=== PATIENT | male | born 1930 | race African-American/Black ===

== ENCOUNTER 2018-10-05 15:01 | Inpatient (IN) | payer MEDICARE ==
[~2018-10-05] VITALS: Ht 172.7 cm; Wt 85.7 kg
[2018-10-05] MEDS ORDERED: SODIUM CHLORIDE 0.9% 1,000 ML IV ONE (15:16)
[2018-10-05] MEDS ORDERED: AMLO10TA80 MT (15:50)
[2018-10-05] MEDS ORDERED: TAMS0.4C31 MT (15:50)
[2018-10-05] MEDS ORDERED: GLIP5TAB12 MT (15:50)
[2018-10-05] MEDS ORDERED: LEVO175T7 MT (15:50)
[2018-10-05] MEDS ORDERED: SIMV80TA70 MT (15:50)
[2018-10-05] MEDS ORDERED: ASPI-1158 MT (15:50)
[2018-10-05] MEDS ORDERED: METO-539 PO (15:50)
[2018-10-05] MEDS ORDERED: METF-816 MT (15:50)
[2018-10-05 16:08] LABS: HEMATOCRIT. 30.6 % (42.0-52.0); HEMOGLOBIN. 10.3 g/dL (14.0-18.0); MEAN CORPUSCULAR HEMOGLOBIN 31.5 pg (28.0-32.0); MEAN CORPUSCULAR VOLUME 93.8 fL (80.0-94.0); MEAN PLATELET VOLUME 8.7 fl (7.4-10.4); PLATELET 244 x1000/uL (130-400); RED BLOOD CELL COUNT 3.26 mill/uL (4.7-6.1); RED CELL DISTRIBUTION WIDTH 16.4 % (11.6-14.6)
[2018-10-05 16:09] LABS: PROTHROMBIN TIME 10.3 sec (9.1-11.1)
[2018-10-05 16:19] LABS: CHLORIDE 104 mEq/L (98-107)
[2018-10-05 16:29] LABS: PLATELET ESTIMATE NORMAL
[2018-10-05] MEDS ORDERED: MORPHINE SULFATE 4 MG/ML CPJ (NOT FOR IM USE) IV ONE (18:00)
[2018-10-05 18:17] LABS: CLARITY URINE CLEAR (CLEAR); COLOR URINE DARK YELLOW (YELLOW); KETONES URINE TRACE (NEGATIVE); LEUKOCYTE ESTERASE URINE NEGATIVE (NEGATIVE); NITRITE URINE NEGATIVE (NEGATIVE); OCCULT BLOOD URINE TRACE (NEGATIVE); PROTEIN URINE TRACE (NEGATIVE); SPECIFIC GRAVITY URINE 1.025 (1.005-1.030)
[2018-10-05 21:40] VITALS: BP 112/56
[2018-10-05 22:00] VITALS: BP 112/56
[2018-10-05] MEDS ORDERED: MAGNESIUM HYDROXIDE 400MG/5ML 30ML UDC PO PRN (22:15)
[2018-10-05] MEDS ORDERED: IBUPROFEN 600MG TABLET PO PRN (22:15)
[2018-10-05] MEDS ORDERED: ACETAMINOPHEN 325MG TABLET PO PRN (22:15)
[2018-10-05] MEDS ORDERED: MAGNESIUM/ALUMINUM HYDROXIDE/SIMETHICONE 30ML UDC PO PRN (22:15)
[2018-10-05] MEDS ORDERED: DEXTROSE 50% WATER 50ML SYRINGE IV PRN (22:15)
[2018-10-05] MEDS ORDERED: GUAIFENESIN 200MG/10ML SUGAR FREE UDC PO PRN (22:15)
[2018-10-05] MEDS ORDERED: CLONIDINE 0.1MG TABLET PO PRN (22:15)
[2018-10-05] MEDS ORDERED: IPRATROPIUM/ALBUTEROL 0.5-3(2.5)MG/3ML NEB INH PRN (22:15)
[2018-10-05] MEDS ORDERED: TEMAZEPAM 15MG CAPSULE PO PRN (22:15)
[2018-10-05] MEDS ORDERED: ONDANSETRON HCL 4MG/2ML INJ IV PRN (22:15)
[2018-10-05] MEDS ORDERED: INFLUENZA VIRUS VACCINE(AFLURIA) 0.5ML SYR IM ONE (22:30)
[2018-10-06] MEDS: FAMOTIDINE 20MG TABLET PO SCH ×2 (01:51→20:25)
[2018-10-06] MEDS: SODIUM CHLORIDE 0.9% 1,000 ML IV SCH ×2 (01:52→12:09)
[2018-10-06] MEDS: TRAMADOL 50MG TABLET PO PRN ×2 (01:52→20:25)
[2018-10-06 04:00] VITALS: BP 123/67
[2018-10-06] MEDS: LEVOTHYROXINE SODIUM 175MCG TABLET PO SCH (06:25)
[2018-10-06] MEDS: BLOOD SUGAR DIAGNOSTIC STRIP TEST SCH ×4 (06:26→20:29)
[2018-10-06] MEDS: GLIPIZIDE 5MG TABLET PO SCH (06:26)
[2018-10-06] MEDS: INSULIN LISPRO 100 UNITS/ML SUBCUT SCH ×4 (06:38→20:29)
[2018-10-06 07:48] VITALS: BP 133/50
[2018-10-06 08:00] VITALS: BP 133/50
[2018-10-06] MEDS: TAMSULOSIN HCL 0.4MG SR CAPSULE PO SCH (08:21)
[2018-10-06 12:00] VITALS: BP 148/61
[2018-10-06] MEDS ORDERED: GUAIFENESIN 200MG/10ML SUGAR FREE UDC PO PRN (17:45)
[2018-10-06 20:00] VITALS: BP 129/57
[2018-10-06] MEDS: ATORVASTATIN CALCIUM 40MG TABLET PO SCH (23:00)
[2018-10-07] VITALS (8 sets, daily range): BP systolic 104–137; BP diastolic 55–66
[2018-10-07] MEDS: INSULIN LISPRO 100 UNITS/ML SUBCUT SCH ×4 (06:29→20:32)
[2018-10-07] MEDS: BLOOD SUGAR DIAGNOSTIC STRIP TEST SCH ×4 (06:29→20:32)
[2018-10-07] MEDS: GLIPIZIDE 5MG TABLET PO SCH (06:30)
[2018-10-07] MEDS: LEVOTHYROXINE SODIUM 175MCG TABLET PO SCH (06:30)
[2018-10-07] MEDS: TAMSULOSIN HCL 0.4MG SR CAPSULE PO SCH (09:31)
[2018-10-07] MEDS: FAMOTIDINE 20MG TABLET PO SCH (20:32)
[2018-10-07] MEDS: ATORVASTATIN CALCIUM 40MG TABLET PO SCH (20:32)
[2018-10-08] VITALS (7 sets, daily range): BP systolic 113–142; BP diastolic 49–63
[2018-10-08] MEDS: LEVOTHYROXINE SODIUM 175MCG TABLET PO SCH (06:21)
[2018-10-08] MEDS: GLIPIZIDE 5MG TABLET PO SCH (06:21)
[2018-10-08] MEDS: INSULIN LISPRO 100 UNITS/ML SUBCUT SCH ×4 (06:22→21:00)
[2018-10-08] MEDS: BLOOD SUGAR DIAGNOSTIC STRIP TEST SCH ×4 (06:22→21:21)
[2018-10-08] MEDS: TAMSULOSIN HCL 0.4MG SR CAPSULE PO SCH (09:00)
[2018-10-08 12:28] LABS: BASOPHILS % 0.4 % (0.0-2.0); HEMATOCRIT. 27.1 % (42.0-52.0); LYMPHOCYTES % 15.8 % (20.0-50.0); MEAN CORPUSCULAR HEMOGLOBIN 31.6 pg (28.0-32.0); MEAN CORPUSCULAR VOLUME 94.6 fL (80.0-94.0); MEAN PLATELET VOLUME 7.9 fl (7.4-10.4); MONOCYTES % 8.2 % (2.0-8.0); NEUTROPHILS % 73.6 % (40.0-76.0); PLATELET 223 x1000/uL (130-400); RED BLOOD CELL COUNT 2.86 mill/uL (4.7-6.1); RED CELL DISTRIBUTION WIDTH 16.1 % (11.6-14.6)
[2018-10-08 12:31] LABS: CHLORIDE 106 mEq/L (98-107)
[2018-10-08] MEDS ORDERED: ROPIVACAINE HCL 10MG/ML 20 ML VIAL EPI ONE (16:53)
[2018-10-08] MEDS ORDERED: GLYCOPYRROLATE 0.2 MG/ML 2ML VIAL ONE (16:59)
[2018-10-08] MEDS ORDERED: FENTANYL CITRATE/PF 50MCG/ML 2ML VIAL ONE (16:59)
[2018-10-08] MEDS ORDERED: MIDAZOLAM HCL 2 MG/2 ML VIAL ONE (16:59)
[2018-10-08] MEDS ORDERED: PROPOFOL 200MG/20ML VIAL IV ONE (16:59)
[2018-10-08] MEDS ORDERED: METOCLOPRAMIDE HCL 10MG/2ML VIAL ONE (17:00)
[2018-10-08] MEDS ORDERED: ONDANSETRON HCL 4MG/2ML INJ ONE (17:00)
[2018-10-08] MEDS ORDERED: SUCCINYLCHOLINE CHLORIDE 200MG/10ML IV ONE (17:00)
[2018-10-08] MEDS ORDERED: LIDOCAINE HCL/PF 1% 10 MG/ML 5ML VIAL ONE (17:00)
[2018-10-08] MEDS ORDERED: SKIN ADHESIVE 0.7 GM EA TOP ONE (17:02)
[2018-10-08] MEDS ORDERED: BUPIVACAINE HCL/PF 0.5% (5MG/ML) 10ML ONE (17:02)
[2018-10-08] MEDS ORDERED: BACITRACIN 50,000 UNITS/VIAL ONE (17:03)
[2018-10-08] MEDS ORDERED: BACITRACIN 15GM TUBE TOP ONE (17:03)
[2018-10-08] MEDS ORDERED: NORMAL SALINE 0.9% 10 ML SYR ONE (17:03)
[2018-10-08] MEDS ORDERED: ROCURONIUM BROMIDE 10MG/ML VIAL 5ML IV ONE (17:34)
[2018-10-08] MEDS ORDERED: BUPIVACAINE HCL/EPINEPHRINE 0.5%/0.0005 30ML ONE (18:03)
[2018-10-08] MEDS ORDERED: SODIUM CHLORIDE 0.9% 10ML VIAL ONE ×2 (18:35→19:14)
[2018-10-08] MEDS ORDERED: EPHEDRINE SULFATE 50MG/ML VIAL ONE ×2 (18:35→19:14)
[2018-10-08] MEDS ORDERED: MORPHINE SULFATE 4 MG/ML CPJ (NOT FOR IM USE) IV PRN ×2 (20:15)
[2018-10-08] MEDS: ATORVASTATIN CALCIUM 40MG TABLET PO SCH (21:00)
[2018-10-08] MEDS: FAMOTIDINE 20MG TABLET PO SCH (21:00)
[2018-10-08] MEDS: CEFAZOLIN 2,000 MG in DEXT 5% WATER 100 ML IV SCH (22:38)
[2018-10-09] VITALS: BP 107/55
[2018-10-09 03:47] VITALS: BP 131/65
[2018-10-09] MEDS: CEFAZOLIN 2,000 MG in DEXT 5% WATER 100 ML IV SCH (05:24)
[2018-10-09] MEDS: LEVOTHYROXINE SODIUM 175MCG TABLET PO SCH (06:34)
[2018-10-09] MEDS: GLIPIZIDE 5MG TABLET PO SCH (06:34)
[2018-10-09] MEDS: INSULIN LISPRO 100 UNITS/ML SUBCUT SCH ×4 (06:35→20:58)
[2018-10-09] MEDS: BLOOD SUGAR DIAGNOSTIC STRIP TEST SCH ×4 (06:35→21:00)
[2018-10-09 08:01] LABS: CHLORIDE 104 mEq/L (98-107)
[2018-10-09 08:03] LABS: HEMATOCRIT. 25.2 % (42.0-52.0); HEMOGLOBIN. 8.3 g/dL (14.0-18.0); MEAN CORPUSCULAR HEMOGLOBIN 31.2 pg (28.0-32.0); MEAN CORPUSCULAR VOLUME 94.7 fL (80.0-94.0); MEAN PLATELET VOLUME 7.8 fl (7.4-10.4); PLATELET 201 x1000/uL (130-400); RED BLOOD CELL COUNT 2.66 mill/uL (4.7-6.1); RED CELL DISTRIBUTION WIDTH 16.2 % (11.6-14.6)
[2018-10-09] MEDS: TAMSULOSIN HCL 0.4MG SR CAPSULE PO SCH (09:18)
[2018-10-09 12:00] VITALS: BP 116/60
[2018-10-09] MEDS: TRAMADOL 50MG TABLET PO PRN (14:28)
[2018-10-09 16:00] VITALS: BP 96/54
[2018-10-09 17:01] LABS: PLATELET ESTIMATE NORMAL
[2018-10-09 20:00] VITALS: BP 135/59
[2018-10-09] MEDS: FAMOTIDINE 20MG TABLET PO SCH (20:58)
[2018-10-09] MEDS: ATORVASTATIN CALCIUM 40MG TABLET PO SCH (20:58)
[2018-10-10] VITALS: BP 130/66
[2018-10-10 04:00] VITALS: BP 145/77
[2018-10-10] MEDS: BLOOD SUGAR DIAGNOSTIC STRIP TEST SCH ×3 (05:45→18:09)
[2018-10-10] MEDS: LEVOTHYROXINE SODIUM 175MCG TABLET PO SCH (05:48)
[2018-10-10] MEDS: INSULIN LISPRO 100 UNITS/ML SUBCUT SCH ×3 (05:50→18:06)
[2018-10-10] MEDS: GLIPIZIDE 5MG TABLET PO SCH (05:50)
[2018-10-10 06:20] LABS: HEMATOCRIT 24.2 % (42.0-52.0); HEMOGLOBIN 8.2 g/dL (14.0-18.0); MEAN CORPUSCULAR HEMOGLOBIN 31.4 pg (28.0-32.0); MEAN CORPUSCULAR VOLUME 92.9 fL (80.0-94.0); PLATELET 232 x1000/uL (130-400); RED BLOOD CELL COUNT 2.61 mill/uL (4.7-6.1); RED CELL DISTRIBUTION WIDTH 15.9 % (11.6-14.6)
[2018-10-10 08:00] VITALS: BP 125/62
[2018-10-10] MEDS: TAMSULOSIN HCL 0.4MG SR CAPSULE PO SCH (08:51)
[2018-10-10 09:41] LABS: T4 FREE 1.09 ng/dL (0.76-1.46)
[2018-10-10 12:07] VITALS: BP 139/64
[2018-10-10 16:10] VITALS: BP 135/65
[2018-10-10 17:07] LABS: CLARITY URINE CLEAR (CLEAR); COLOR URINE YELLOW (YELLOW); KETONES URINE NEGATIVE (NEGATIVE); LEUKOCYTE ESTERASE URINE 1+ (NEGATIVE); NITRITE URINE NEGATIVE (NEGATIVE); OCCULT BLOOD URINE 2+ (NEGATIVE); PROTEIN URINE TRACE (NEGATIVE); SPECIFIC GRAVITY URINE 1.017 (1.005-1.030)
[2018-10-11] MEDS ORDERED: LEVOTHYROXINE SODIUM 175MCG TABLET PO SCH (06:00)
== END 2018-10-10 18:50 | DRG 493 ==
LOC: ER 15:01 → 8WST 18:47 → EDBEDREQ 18:50 → EDBEDREQTM 20:13 → EDBEDREQ 20:13 → ENRESERV 20:15 → CANRESERV 20:15
PROVIDERS: ADMIT Internal Medicine; ATTEND Internal Medicine
PROC: 0PSD06Z Reposition Left Humeral Head with Intramedullary Internal Fixation Device, Open Approach (ICD-10-PCS; principal; 2018-10-08 17:00)
DX: S42.252A Displaced fracture of greater tuberosity of left humerus, initial encounter for closed fracture (principal); I42.9 Cardiomyopathy, unspecified; S42.212A Unspecified displaced fracture of surgical neck of left humerus, initial encounter for closed fracture; E11.22 Type 2 diabetes mellitus with diabetic chronic kidney disease; I12.9 Hypertensive chronic kidney disease with stage 1 through stage 4 chronic kidney disease, or unspecified chronic kidney disease; N18.2 Chronic kidney disease, stage 2 (mild); G90.8 Other disorders of autonomic nervous system; E03.9 Hypothyroidism, unspecified; E78.00 Pure hypercholesterolemia, unspecified; I35.0 Nonrheumatic aortic (valve) stenosis; I48.0 Paroxysmal atrial fibrillation; W18.30XA Fall on same level, unspecified, initial encounter; Z85.46 Personal history of malignant neoplasm of prostate; Z86.73 Personal history of transient ischemic attack (TIA), and cerebral infarction without residual deficits; Z87.891 Personal history of nicotine dependence; Z95.0 Presence of cardiac pacemaker; Z95.810 Presence of automatic (implantable) cardiac defibrillator; Y93.89 Activity, other specified; Y92.098 Other place in other non-institutional residence as the place of occurrence of the external cause; Y99.8 Other external cause status
CPT/HCPCS: 36415; 71045; 73030; 73060; 80048; 82962; 83605; 84439; 84443; 84480; 84481; 84484; 85007; 85027; 86850; 86900; 90686; 93005; 93306; 93970; 96361; 96374; 97110; 97163; 97166; 97530; 99285; A4216; A4565; C1713; C1769; J0171; J0330; J0690; J1815; J2250; J2270; J2405; J2704; J2765; J2795; J3010; J3490; J7030; J7050; J7060; J7620

== ENCOUNTER 2018-10-10 19:00 | Inpatient (IN) | payer MEDICARE ==
[~2018-10-10] VITALS: Ht 172.7 cm; Wt 85.3 kg
[~2018-10-10 19:00] MED LIST: AMLO10TA80 MT; ASPI-1158 MT; GLIP5TAB12 MT; LEVO175T7 MT; METF-816 MT; METO-539 PO; SIMV80TA70 MT; TAMS0.4C31 MT
[2018-10-10 20:00] VITALS: BP_SYST 149; BP_SYST 159; BP_DIAS 64; BP_DIAS 69
[2018-10-10] MEDS ORDERED: MAGNESIUM/ALUMINUM HYDROXIDE/SIMETHICONE 30ML UDC PO PRN (20:45)
[2018-10-10] MEDS ORDERED: ACETAMINOPHEN 325MG TABLET PO PRN (20:45)
[2018-10-10] MEDS ORDERED: TEMAZEPAM 15MG CAPSULE PO PRN (20:45)
[2018-10-10] MEDS ORDERED: ONDANSETRON HCL 4MG TABLET PO PRN (20:45)
[2018-10-10] MEDS ORDERED: TRAMADOL 50MG TABLET PO PRN (20:45)
[2018-10-10] MEDS ORDERED: DEXTROSE 50% WATER 50ML SYRINGE IV PRN (20:45)
[2018-10-10] MEDS ORDERED: CLONIDINE 0.1MG TABLET PO PRN (20:45)
[2018-10-10] MEDS ORDERED: IPRATROPIUM/ALBUTEROL 0.5-3(2.5)MG/3ML NEB HHN PRN (20:45)
[2018-10-10] MEDS: INSULIN LISPRO 100 UNITS/ML SUBCUT SCH (21:00)
[2018-10-10] MEDS ORDERED: MAGNESIUM HYDROXIDE 400MG/5ML 30ML UDC PO PRN (21:15)
[2018-10-10] MEDS: FAMOTIDINE 20MG TABLET PO SCH (21:49)
[2018-10-10] MEDS: ATORVASTATIN CALCIUM 40MG TABLET PO SCH (21:49)
[2018-10-10] MEDS: BLOOD SUGAR DIAGNOSTIC STRIP TEST SCH (21:54)
[2018-10-11] MEDS: HYDROCODONE/ACETAMINOPHEN 5/325MG TABLET PO PRN (04:36)
[2018-10-11] MEDS: INSULIN LISPRO 100 UNITS/ML SUBCUT SCH ×4 (06:37→21:36)
[2018-10-11] MEDS: LEVOTHYROXINE SODIUM 88MCG TABLET PO SCH (06:37)
[2018-10-11] MEDS: BLOOD SUGAR DIAGNOSTIC STRIP TEST SCH ×4 (06:37→20:59)
[2018-10-11] MEDS: GLIPIZIDE 5MG TABLET PO SCH (06:38)
[2018-10-11] MEDS: LEVOTHYROXINE SODIUM 100MCG TABLET PO SCH (06:38)
[2018-10-11 08:46] VITALS: BP 144/68
[2018-10-11] MEDS: TAMSULOSIN HCL 0.4MG SR CAPSULE PO SCH (08:51)
[2018-10-11] MEDS: CLONIDINE 0.1MG TABLET PO SCH (08:52)
[2018-10-11 12:00] VITALS: BP 120/57
[2018-10-11 16:00] VITALS: BP 142/64
[2018-10-11] MEDS: DOCUSATE SODIUM 100MG CAPSULE PO SCH (17:00)
[2018-10-11 20:00] VITALS: BP 151/63
[2018-10-11] MEDS: ATORVASTATIN CALCIUM 40MG TABLET PO SCH (21:35)
[2018-10-11] MEDS: FAMOTIDINE 20MG TABLET PO SCH (21:35)
[2018-10-11 23:56] VITALS: BP 149/67
[2018-10-12] VITALS (7 sets, daily range): BP systolic 102–155; BP diastolic 47–68
[2018-10-12] MEDS: BLOOD SUGAR DIAGNOSTIC STRIP TEST SCH ×4 (06:35→20:39)
[2018-10-12] MEDS: INSULIN LISPRO 100 UNITS/ML SUBCUT SCH ×4 (06:35→20:39)
[2018-10-12] MEDS: LEVOTHYROXINE SODIUM 88MCG TABLET PO SCH (06:35)
[2018-10-12] MEDS: GLIPIZIDE 5MG TABLET PO SCH (06:35)
[2018-10-12] MEDS: LEVOTHYROXINE SODIUM 100MCG TABLET PO SCH (06:35)
[2018-10-12 08:08] LABS: BASOPHILS % 0.5 % (0.0-2.0); EOSINOPHILS % 2.7 % (0.0-5.0); HEMATOCRIT. 21.8 % (42.0-52.0); HEMOGLOBIN. 7.4 g/dL (14.0-18.0); LYMPHOCYTES % 10.2 % (20.0-50.0); MEAN CORPUSCULAR HEMOGLOBIN 31.6 pg (28.0-32.0); MEAN PLATELET VOLUME 6.9 fl (7.4-10.4); MONOCYTES % 10.2 % (2.0-8.0); NEUTROPHILS % 76.4 % (40.0-76.0); PLATELET 261 x1000/uL (130-400); RED BLOOD CELL COUNT 2.35 mill/uL (4.7-6.1); RED CELL DISTRIBUTION WIDTH 15.9 % (11.6-14.6)
[2018-10-12] MEDS: CLONIDINE 0.1MG TABLET PO SCH (09:00)
[2018-10-12] MEDS: TAMSULOSIN HCL 0.4MG SR CAPSULE PO SCH (09:00)
[2018-10-12] MEDS: DOCUSATE SODIUM 100MG CAPSULE PO SCH ×2 (09:08→16:59)
[2018-10-12 09:39] LABS: CHLORIDE 103 mEq/L (98-107)
[2018-10-12] MEDS ORDERED: IPRATROPIUM/ALBUTEROL 0.5-3(2.5)MG/3ML NEB HHN PRN (16:00)
[2018-10-12] MEDS: ATORVASTATIN CALCIUM 40MG TABLET PO SCH (20:39)
[2018-10-12] MEDS: FAMOTIDINE 20MG TABLET PO SCH (20:39)
[2018-10-13 00:39] VITALS: BP 136/57
[2018-10-13 00:40] VITALS: BP 136/57
[2018-10-13] MEDS ORDERED: TEMAZEPAM 15MG CAPSULE PO PRN (01:45)
[2018-10-13 05:59] LABS: BASOPHILS % 0.5 % (0.0-2.0); EOSINOPHILS % 2.6 % (0.0-5.0); HEMATOCRIT. 27.1 % (42.0-52.0); HEMOGLOBIN. 9.5 g/dL (14.0-18.0); LYMPHOCYTES % 15.1 % (20.0-50.0); MEAN CORPUSCULAR HEMOGLOBIN 32.2 pg (28.0-32.0); MEAN CORPUSCULAR VOLUME 91.5 fL (80.0-94.0); MEAN PLATELET VOLUME 6.9 fl (7.4-10.4); MONOCYTES % 11.3 % (2.0-8.0); NEUTROPHILS % 70.5 % (40.0-76.0); PLATELET 295 x1000/uL (130-400); RED BLOOD CELL COUNT 2.96 mill/uL (4.7-6.1); RED CELL DISTRIBUTION WIDTH 15.7 % (11.6-14.6)
[2018-10-13] MEDS: BLOOD SUGAR DIAGNOSTIC STRIP TEST SCH ×4 (06:26→20:40)
[2018-10-13] MEDS: GLIPIZIDE 5MG TABLET PO SCH (06:28)
[2018-10-13] MEDS: LEVOTHYROXINE SODIUM 100MCG TABLET PO SCH (06:28)
[2018-10-13] MEDS: LEVOTHYROXINE SODIUM 88MCG TABLET PO SCH (06:28)
[2018-10-13] MEDS: INSULIN LISPRO 100 UNITS/ML SUBCUT SCH ×4 (06:28→20:40)
[2018-10-13 08:00] VITALS: BP 131/61
[2018-10-13] MEDS: TAMSULOSIN HCL 0.4MG SR CAPSULE PO SCH (08:24)
[2018-10-13] MEDS: DOCUSATE SODIUM 100MG CAPSULE PO SCH ×2 (08:24→17:16)
[2018-10-13] MEDS: GUAIFENESIN 200MG/10ML SUGAR FREE UDC PO PRN ×2 (08:25→17:18)
[2018-10-13] MEDS: CLONIDINE 0.1MG TABLET PO SCH (10:11)
[2018-10-13] MEDS: HYDROCODONE/ACETAMINOPHEN 5/325MG TABLET PO PRN (17:18)
[2018-10-13 20:00] VITALS: BP 130/58
[2018-10-13] MEDS: FAMOTIDINE 20MG TABLET PO SCH (20:40)
[2018-10-13] MEDS: ATORVASTATIN CALCIUM 40MG TABLET PO SCH (20:40)
[2018-10-14] MEDS: GUAIFENESIN 200MG/10ML SUGAR FREE UDC PO PRN ×3 (03:29→12:37)
[2018-10-14] MEDS: BLOOD SUGAR DIAGNOSTIC STRIP TEST SCH ×4 (06:08→21:59)
[2018-10-14] MEDS: INSULIN LISPRO 100 UNITS/ML SUBCUT SCH ×4 (06:36→21:00)
[2018-10-14] MEDS: GLIPIZIDE 5MG TABLET PO SCH (06:36)
[2018-10-14] MEDS: LEVOTHYROXINE SODIUM 88MCG TABLET PO SCH (06:36)
[2018-10-14] MEDS: LEVOTHYROXINE SODIUM 100MCG TABLET PO SCH (06:36)
[2018-10-14 08:03] VITALS: BP 136/51
[2018-10-14] MEDS: CLONIDINE 0.1MG TABLET PO SCH (08:23)
[2018-10-14] MEDS: TAMSULOSIN HCL 0.4MG SR CAPSULE PO SCH (08:23)
[2018-10-14] MEDS: DOCUSATE SODIUM 100MG CAPSULE PO SCH ×2 (08:23→16:36)
[2018-10-14 20:00] VITALS: BP 109/60
[2018-10-14] MEDS: FAMOTIDINE 20MG TABLET PO SCH (21:59)
[2018-10-14] MEDS: ATORVASTATIN CALCIUM 40MG TABLET PO SCH (21:59)
[2018-10-15] MEDS: BLOOD SUGAR DIAGNOSTIC STRIP TEST SCH ×4 (06:04→21:00)
[2018-10-15] MEDS: GLIPIZIDE 5MG TABLET PO SCH (06:05)
[2018-10-15] MEDS: LEVOTHYROXINE SODIUM 88MCG TABLET PO SCH (06:05)
[2018-10-15] MEDS: LEVOTHYROXINE SODIUM 100MCG TABLET PO SCH (06:05)
[2018-10-15] MEDS: INSULIN LISPRO 100 UNITS/ML SUBCUT SCH ×4 (06:48→21:00)
[2018-10-15 08:03] VITALS: BP 178/69
[2018-10-15] MEDS: CLONIDINE 0.1MG TABLET PO SCH (10:21)
[2018-10-15] MEDS: TAMSULOSIN HCL 0.4MG SR CAPSULE PO SCH (10:21)
[2018-10-15] MEDS: DOCUSATE SODIUM 100MG CAPSULE PO SCH ×2 (10:21→17:39)
[2018-10-15 18:01] LABS: BASOPHILS % 0.9 % (0.0-2.0); EOSINOPHILS % 1.6 % (0.0-5.0); HEMOGLOBIN. 9.1 g/dL (14.0-18.0); MEAN CORPUSCULAR HEMOGLOBIN 31.2 pg (28.0-32.0); MEAN CORPUSCULAR VOLUME 92.5 fL (80.0-94.0); MEAN PLATELET VOLUME 6.4 fl (7.4-10.4); MONOCYTES % 8.3 % (2.0-8.0); NEUTROPHILS % 74.2 % (40.0-76.0); PLATELET 353 x1000/uL (130-400); RED BLOOD CELL COUNT 2.92 mill/uL (4.7-6.1); RED CELL DISTRIBUTION WIDTH 15.3 % (11.6-14.6)
[2018-10-15 20:00] VITALS: BP 135/47
[2018-10-15] MEDS: FAMOTIDINE 20MG TABLET PO SCH (22:20)
[2018-10-15] MEDS: ATORVASTATIN CALCIUM 40MG TABLET PO SCH (22:20)
[2018-10-15] MEDS ORDERED: TRAMADOL 50MG TABLET PO PRN (22:30)
[2018-10-15] MEDS ORDERED: HYDROCODONE/ACETAMINOPHEN 5/325MG TABLET PO PRN (22:30)
[2018-10-16] MEDS: GLIPIZIDE 5MG TABLET PO SCH (06:01)
[2018-10-16] MEDS: BLOOD SUGAR DIAGNOSTIC STRIP TEST SCH ×4 (06:01→21:00)
[2018-10-16] MEDS: LEVOTHYROXINE SODIUM 100MCG TABLET PO SCH (06:02)
[2018-10-16] MEDS: LEVOTHYROXINE SODIUM 88MCG TABLET PO SCH (06:02)
[2018-10-16] MEDS: INSULIN LISPRO 100 UNITS/ML SUBCUT SCH ×4 (06:56→21:00)
[2018-10-16 08:15] VITALS: BP 127/60
[2018-10-16] MEDS: CLONIDINE 0.1MG TABLET PO SCH (09:00)
[2018-10-16 09:25] VITALS: BP 108/52
[2018-10-16] MEDS: TAMSULOSIN HCL 0.4MG SR CAPSULE PO SCH (09:37)
[2018-10-16] MEDS: DOCUSATE SODIUM 100MG CAPSULE PO SCH ×2 (09:37→17:50)
[2018-10-16 11:44] LABS: BASOPHILS % 0.6 % (0.0-2.0); EOSINOPHILS % 2.5 % (0.0-5.0); HEMATOCRIT. 26.2 % (42.0-52.0); LYMPHOCYTES % 13.8 % (20.0-50.0); MEAN CORPUSCULAR HEMOGLOBIN 31.6 pg (28.0-32.0); MEAN CORPUSCULAR VOLUME 92.5 fL (80.0-94.0); MEAN PLATELET VOLUME 6.5 fl (7.4-10.4); MONOCYTES % 8.4 % (2.0-8.0); NEUTROPHILS % 74.7 % (40.0-76.0); PLATELET 340 x1000/uL (130-400); RED BLOOD CELL COUNT 2.83 mill/uL (4.7-6.1); RED CELL DISTRIBUTION WIDTH 15.8 % (11.6-14.6)
[2018-10-16] MEDS ORDERED: HYDROCODONE/ACETAMINOPHEN 5/325MG TABLET PO PRN (19:00)
[2018-10-16] MEDS ORDERED: TRAMADOL 50MG TABLET PO PRN (19:00)
[2018-10-16 20:00] VITALS: BP 129/50
[2018-10-17] MEDS: ATORVASTATIN CALCIUM 40MG TABLET PO SCH ×2 (05:28→22:24)
[2018-10-17] MEDS: FAMOTIDINE 20MG TABLET PO SCH ×2 (05:28→22:24)
[2018-10-17] MEDS: BLOOD SUGAR DIAGNOSTIC STRIP TEST SCH ×4 (06:26→21:00)
[2018-10-17] MEDS: LEVOTHYROXINE SODIUM 100MCG TABLET PO SCH (06:27)
[2018-10-17] MEDS: INSULIN LISPRO 100 UNITS/ML SUBCUT SCH ×4 (06:27→21:00)
[2018-10-17] MEDS: LEVOTHYROXINE SODIUM 88MCG TABLET PO SCH (06:27)
[2018-10-17] MEDS: GLIPIZIDE 5MG TABLET PO SCH (06:27)
[2018-10-17 08:06] VITALS: BP 139/61
[2018-10-17] MEDS: TAMSULOSIN HCL 0.4MG SR CAPSULE PO SCH (08:32)
[2018-10-17] MEDS: DOCUSATE SODIUM 100MG CAPSULE PO SCH ×2 (08:32→16:07)
[2018-10-17] MEDS: CLONIDINE 0.1MG TABLET PO SCH (08:33)
[2018-10-17 20:00] VITALS: BP 119/56
[2018-10-17 23:47] LABS: CLARITY URINE CLEAR (CLEAR); COLOR URINE YELLOW (YELLOW); KETONES URINE NEGATIVE (NEGATIVE); LEUKOCYTE ESTERASE URINE TRACE (NEGATIVE); NITRITE URINE NEGATIVE (NEGATIVE); OCCULT BLOOD URINE 3+ (NEGATIVE); PROTEIN URINE NEGATIVE (NEGATIVE); SPECIFIC GRAVITY URINE 1.021 (1.005-1.030)
[2018-10-18] MEDS: LEVOTHYROXINE SODIUM 100MCG TABLET PO SCH (06:45)
[2018-10-18] MEDS: INSULIN LISPRO 100 UNITS/ML SUBCUT SCH ×4 (06:46→21:44)
[2018-10-18] MEDS: LEVOTHYROXINE SODIUM 88MCG TABLET PO SCH (06:46)
[2018-10-18] MEDS: BLOOD SUGAR DIAGNOSTIC STRIP TEST SCH ×4 (06:46→20:07)
[2018-10-18] MEDS: GLIPIZIDE 5MG TABLET PO SCH (06:46)
[2018-10-18 08:00] VITALS: BP 114/52
[2018-10-18] MEDS: DOCUSATE SODIUM 100MG CAPSULE PO SCH ×2 (08:43→16:55)
[2018-10-18] MEDS: TAMSULOSIN HCL 0.4MG SR CAPSULE PO SCH (08:44)
[2018-10-18] MEDS: CLONIDINE 0.1MG TABLET PO SCH (08:44)
[2018-10-18 20:00] VITALS: BP 130/49
[2018-10-18] MEDS: ATORVASTATIN CALCIUM 40MG TABLET PO SCH (20:07)
[2018-10-18] MEDS: FAMOTIDINE 20MG TABLET PO SCH (20:07)
[2018-10-19] MEDS: BLOOD SUGAR DIAGNOSTIC STRIP TEST SCH ×4 (06:11→20:25)
[2018-10-19] MEDS: INSULIN LISPRO 100 UNITS/ML SUBCUT SCH ×4 (06:12→21:44)
[2018-10-19] MEDS: LEVOTHYROXINE SODIUM 88MCG TABLET PO SCH (06:12)
[2018-10-19] MEDS: GLIPIZIDE 5MG TABLET PO SCH (06:12)
[2018-10-19] MEDS: LEVOTHYROXINE SODIUM 100MCG TABLET PO SCH (06:12)
[2018-10-19 08:00] VITALS: BP 157/62
[2018-10-19] MEDS: TAMSULOSIN HCL 0.4MG SR CAPSULE PO SCH (08:10)
[2018-10-19] MEDS: DOCUSATE SODIUM 100MG CAPSULE PO SCH ×2 (08:10→17:16)
[2018-10-19] MEDS: CLONIDINE 0.1MG TABLET PO SCH (08:10)
[2018-10-19 20:00] VITALS: BP 141/66
[2018-10-19] MEDS: FAMOTIDINE 20MG TABLET PO SCH (20:25)
[2018-10-19] MEDS: ATORVASTATIN CALCIUM 40MG TABLET PO SCH (20:25)
[2018-10-19] MEDS ORDERED: HALOPERIDOL 1MG TABLET PO PRN (23:00)
[2018-10-20] MEDS: BLOOD SUGAR DIAGNOSTIC STRIP TEST SCH ×4 (06:15→21:22)
[2018-10-20] MEDS: LEVOTHYROXINE SODIUM 88MCG TABLET PO SCH (06:16)
[2018-10-20] MEDS: LEVOTHYROXINE SODIUM 100MCG TABLET PO SCH (06:16)
[2018-10-20] MEDS: GLIPIZIDE 5MG TABLET PO SCH (06:16)
[2018-10-20 08:11] VITALS: BP 160/61
[2018-10-20] MEDS: INSULIN LISPRO 100 UNITS/ML SUBCUT SCH ×4 (09:00→21:46)
[2018-10-20] MEDS: DOCUSATE SODIUM 100MG CAPSULE PO SCH ×2 (09:26→17:05)
[2018-10-20] MEDS: TAMSULOSIN HCL 0.4MG SR CAPSULE PO SCH (09:27)
[2018-10-20] MEDS: CLONIDINE 0.1MG TABLET PO SCH (09:28)
[2018-10-20 20:00] VITALS: BP_SYST 119; BP_SYST 149; BP_DIAS 57; BP_DIAS 59
[2018-10-20] MEDS: ATORVASTATIN CALCIUM 40MG TABLET PO SCH (21:21)
[2018-10-20] MEDS: FAMOTIDINE 20MG TABLET PO SCH (21:22)
[2018-10-21] MEDS: LEVOTHYROXINE SODIUM 100MCG TABLET PO SCH (06:16)
[2018-10-21] MEDS: LEVOTHYROXINE SODIUM 88MCG TABLET PO SCH (06:16)
[2018-10-21] MEDS: BLOOD SUGAR DIAGNOSTIC STRIP TEST SCH ×4 (06:17→21:00)
[2018-10-21] MEDS: GLIPIZIDE 5MG TABLET PO SCH (06:17)
[2018-10-21 07:00] VITALS: BP 164/63
[2018-10-21] MEDS: DOCUSATE SODIUM 100MG CAPSULE PO SCH ×2 (08:09→17:07)
[2018-10-21] MEDS: TAMSULOSIN HCL 0.4MG SR CAPSULE PO SCH (08:09)
[2018-10-21] MEDS: INSULIN LISPRO 100 UNITS/ML SUBCUT SCH ×4 (08:10→21:00)
[2018-10-21] MEDS: CLONIDINE 0.1MG TABLET PO SCH (08:10)
[2018-10-21 15:38] LABS: BASOPHILS % 0.9 % (0.0-2.0); EOSINOPHILS % 2.3 % (0.0-5.0); HEMATOCRIT. 28.5 % (42.0-52.0); HEMOGLOBIN. 9.7 g/dL (14.0-18.0); LYMPHOCYTES % 19.2 % (20.0-50.0); MEAN CORPUSCULAR VOLUME 94.5 fL (80.0-94.0); MEAN PLATELET VOLUME 6.9 fl (7.4-10.4); NEUTROPHILS % 68.6 % (40.0-76.0); PLATELET 415 x1000/uL (130-400); RED BLOOD CELL COUNT 3.02 mill/uL (4.7-6.1); RED CELL DISTRIBUTION WIDTH 16.5 % (11.6-14.6)
[2018-10-21 20:00] VITALS: BP 127/62
[2018-10-21] MEDS: IBUPROFEN 600MG TABLET PO PRN (21:39)
[2018-10-21] MEDS: ATORVASTATIN CALCIUM 40MG TABLET PO SCH (21:40)
[2018-10-21] MEDS: FAMOTIDINE 20MG TABLET PO SCH (21:40)
[2018-10-22] MEDS: LEVOTHYROXINE SODIUM 88MCG TABLET PO SCH (06:21)
[2018-10-22] MEDS: BLOOD SUGAR DIAGNOSTIC STRIP TEST SCH ×4 (06:21→21:59)
[2018-10-22] MEDS: GLIPIZIDE 5MG TABLET PO SCH (06:21)
[2018-10-22] MEDS: LEVOTHYROXINE SODIUM 100MCG TABLET PO SCH (06:21)
[2018-10-22 08:07] VITALS: BP 152/64
[2018-10-22] MEDS: DOCUSATE SODIUM 100MG CAPSULE PO SCH ×2 (08:41→16:59)
[2018-10-22] MEDS: CLONIDINE 0.1MG TABLET PO SCH (08:41)
[2018-10-22] MEDS: TAMSULOSIN HCL 0.4MG SR CAPSULE PO SCH (08:41)
[2018-10-22] MEDS: IBUPROFEN 600MG TABLET PO PRN (10:23)
[2018-10-22] MEDS: INSULIN LISPRO 100 UNITS/ML SUBCUT SCH ×4 (12:31→21:00)
[2018-10-22 13:48] LABS: CLARITY URINE CLEAR (CLEAR); COLOR URINE YELLOW (YELLOW); KETONES URINE NEGATIVE (NEGATIVE); LEUKOCYTE ESTERASE URINE NEGATIVE (NEGATIVE); NITRITE URINE NEGATIVE (NEGATIVE); OCCULT BLOOD URINE NEGATIVE (NEGATIVE); PH URINE 5.5 (4.5-8.0); PROTEIN URINE NEGATIVE (NEGATIVE); SPECIFIC GRAVITY URINE 1.016 (1.005-1.030)
[2018-10-22 20:00] VITALS: BP 147/70
[2018-10-22] MEDS: FAMOTIDINE 20MG TABLET PO SCH (22:15)
[2018-10-22] MEDS: ATORVASTATIN CALCIUM 40MG TABLET PO SCH (22:15)
[2018-10-23] MEDS: LEVOTHYROXINE SODIUM 88MCG TABLET PO SCH (06:04)
[2018-10-23] MEDS: LEVOTHYROXINE SODIUM 100MCG TABLET PO SCH (06:04)
[2018-10-23] MEDS: GLIPIZIDE 5MG TABLET PO SCH (06:54)
[2018-10-23] MEDS: BLOOD SUGAR DIAGNOSTIC STRIP TEST SCH ×4 (06:54→21:00)
[2018-10-23] MEDS: INSULIN LISPRO 100 UNITS/ML SUBCUT SCH ×4 (07:34→21:00)
[2018-10-23 08:00] VITALS: BP 113/59
[2018-10-23] MEDS: CLONIDINE 0.1MG TABLET PO SCH (08:32)
[2018-10-23] MEDS: DOCUSATE SODIUM 100MG CAPSULE PO SCH ×2 (08:32→16:45)
[2018-10-23] MEDS: TAMSULOSIN HCL 0.4MG SR CAPSULE PO SCH (08:32)
[2018-10-23 09:08] LABS: BASOPHILS % 0.9 % (0.0-2.0); EOSINOPHILS % 0.8 % (0.0-5.0); HEMATOCRIT. 30.2 % (42.0-52.0); HEMOGLOBIN. 10.1 g/dL (14.0-18.0); LYMPHOCYTES % 9.7 % (20.0-50.0); MEAN CORPUSCULAR HEMOGLOBIN 31.6 pg (28.0-32.0); MONOCYTES % 4.9 % (2.0-8.0); NEUTROPHILS % 83.7 % (40.0-76.0); PLATELET 420 x1000/uL (130-400); RED BLOOD CELL COUNT 3.21 mill/uL (4.7-6.1); RED CELL DISTRIBUTION WIDTH 16.4 % (11.6-14.6)
[2018-10-23 09:18] LABS: CHLORIDE 104 mEq/L (98-107)
[2018-10-23 20:00] VITALS: BP 147/60
[2018-10-23] MEDS: ATORVASTATIN CALCIUM 40MG TABLET PO SCH (22:22)
[2018-10-23] MEDS: FAMOTIDINE 20MG TABLET PO SCH (22:23)
[2018-10-24] MEDS: LEVOTHYROXINE SODIUM 100MCG TABLET PO SCH (06:14)
[2018-10-24] MEDS: BLOOD SUGAR DIAGNOSTIC STRIP TEST SCH ×4 (06:14→20:56)
[2018-10-24] MEDS: LEVOTHYROXINE SODIUM 88MCG TABLET PO SCH (06:14)
[2018-10-24] MEDS: GLIPIZIDE 5MG TABLET PO SCH (06:14)
[2018-10-24] MEDS: INSULIN LISPRO 100 UNITS/ML SUBCUT SCH ×4 (06:15→20:56)
[2018-10-24 08:19] VITALS: BP 149/54
[2018-10-24] MEDS: DOCUSATE SODIUM 100MG CAPSULE PO SCH ×2 (10:38→17:26)
[2018-10-24] MEDS: CLONIDINE 0.1MG TABLET PO SCH (10:39)
[2018-10-24] MEDS: TAMSULOSIN HCL 0.4MG SR CAPSULE PO SCH (10:39)
[2018-10-24 20:00] VITALS: BP 154/61
[2018-10-24] MEDS: FAMOTIDINE 20MG TABLET PO SCH (20:50)
[2018-10-24] MEDS: ATORVASTATIN CALCIUM 40MG TABLET PO SCH (20:50)
[2018-10-25] MEDS: LEVOTHYROXINE SODIUM 100MCG TABLET PO SCH (06:00)
[2018-10-25] MEDS: LEVOTHYROXINE SODIUM 88MCG TABLET PO SCH (06:00)
[2018-10-25] MEDS: GLIPIZIDE 5MG TABLET PO SCH (07:00)
[2018-10-25] MEDS: BLOOD SUGAR DIAGNOSTIC STRIP TEST SCH ×2 (07:23→11:15)
[2018-10-25 08:00] VITALS: BP 129/46
[2018-10-25 08:10] VITALS: BP 135/69
[2018-10-25] MEDS: DOCUSATE SODIUM 100MG CAPSULE PO SCH (08:58)
[2018-10-25] MEDS: CLONIDINE 0.1MG TABLET PO SCH (08:58)
[2018-10-25] MEDS: TAMSULOSIN HCL 0.4MG SR CAPSULE PO SCH (08:58)
[2018-10-25] MEDS: INSULIN LISPRO 100 UNITS/ML SUBCUT SCH ×2 (09:00→13:00)
[2018-10-25 15:01] VITALS: BP 135/69
== END 2018-10-25 16:45 | disposition home health service (06) | DRG 65 ==
PROVIDERS: ADMIT Psychiatry & Neurology Neurology; ATTEND Internal Medicine
PROC: 30233N1 Transfusion of Nonautologous Red Blood Cells into Peripheral Vein, Percutaneous Approach (ICD-10-PCS; principal; 2018-10-12)
DX: I63.9 Cerebral infarction, unspecified (principal); S42.352A Displaced comminuted fracture of shaft of humerus, left arm, initial encounter for closed fracture; G93.40 Encephalopathy, unspecified; I42.9 Cardiomyopathy, unspecified; F05 Delirium due to known physiological condition; R53.81 Other malaise; W18.39XA Other fall on same level, initial encounter; I35.0 Nonrheumatic aortic (valve) stenosis; E11.22 Type 2 diabetes mellitus with diabetic chronic kidney disease; I12.9 Hypertensive chronic kidney disease with stage 1 through stage 4 chronic kidney disease, or unspecified chronic kidney disease; N18.2 Chronic kidney disease, stage 2 (mild); R15.9 Full incontinence of feces; R41.89 Other symptoms and signs involving cognitive functions and awareness; R32 Unspecified urinary incontinence; I25.10 Atherosclerotic heart disease of native coronary artery without angina pectoris; J44.9 Chronic obstructive pulmonary disease, unspecified; M19.90 Unspecified osteoarthritis, unspecified site; E03.9 Hypothyroidism, unspecified; D64.9 Anemia, unspecified; R55 Syncope and collapse; I27.22 Pulmonary hypertension due to left heart disease; F06.31 Mood disorder due to known physiological condition with depressive features; F06.8 Other specified mental disorders due to known physiological condition; Y93.89 Activity, other specified; Y92.89 Other specified places as the place of occurrence of the external cause; Y99.8 Other external cause status; Z86.73 Personal history of transient ischemic attack (TIA), and cerebral infarction without residual deficits; Z95.0 Presence of cardiac pacemaker; Z79.899 Other long term (current) drug therapy; Z79.82 Long term (current) use of aspirin; Z79.84 Long term (current) use of oral hypoglycemic drugs
CPT/HCPCS: 36415; 80048; 82270; 82565; 82962; 86850; 86900; 86920; 92523; 93970; 93971; 97110; 97112; 97116; 97163; 97166; 97530; 97535; A6261; G0515; J1815; P9016; A5200